=== PATIENT | male | born 2000 | race Caucasian/White ===

== ENCOUNTER 2024-03-20 21:20 | Emergency (ER) | payer OTHER ==
[~2024-03-20] VITALS: Ht 167.6 cm; Wt 86.6 kg
[2024-03-20] VITALS (11 sets, daily range): BP systolic 119–138; BP diastolic 73–91
[2024-03-20] MEDS ORDERED: ACETAMINOPHEN 500 MG TAB PO ONE (21:40)
[2024-03-20] MEDS ORDERED: IBUPROFEN 600 MG/TAB PO ONE (21:40)
[2024-03-20] MEDS ORDERED: ORPHENADRINE CITRATE 30 MG/ML AMP IM ONE (23:55)
[2024-03-21 00:01] VITALS: BP 129/88
[2024-03-21 00:15] VITALS: BP 123/71
[2024-03-21] MEDS ORDERED: FLEXERIL5 M1 PO (00:29)
[2024-03-21 00:30] VITALS: BP 117/72
[2024-03-21 00:47] VITALS: BP 117/72
== END 2024-03-21 00:42 | disposition home or self-care (01) | DRG 605 ==
LOC: ED 21:20
DX: S80.02XA Contusion of left knee, initial encounter (principal); S90.02XA Contusion of left ankle, initial encounter; S80.812A Abrasion, left lower leg, initial encounter; W20.8XXA Other cause of strike by thrown, projected or falling object, initial encounter; Y93.89 Activity, other specified